=== PATIENT | male | born 1980 | race Two or more races ===

== ENCOUNTER 2020-11-14 11:03 | Emergency (ER) | payer OTHER ==
[2020-11-14 11:37] VITALS: BP 134/89; PULSE 90; TEMP 98; BMI 27.8
== END 2020-11-14 12:34 | disposition home or self-care (01) ==
LOC: JER 11:03
DX: R05 Cough (principal); Z11.52 Encounter for screening for COVID-19
CPT/HCPCS: 99283-25; C9803; U0003